=== PATIENT | male | born 1990 | race African-American/Black ===

== ENCOUNTER 2019-03-13 09:11 | Emergency (ER) | payer OTHER ==
[~2019-03-13] VITALS: Ht 180 cm; Wt 85.0 kg
[~2019-03-13 09:11] MED LIST: MAGN296S50 PO
--- NOTE | 2019-03-13 09:25 | ED EENT ---
History of Present Illness General Chief Complaint: Oral/Throat Problems Stated Complaint: SORE THROAT Source: patient Exam Limitations: no limitations History of Present Illness Date Seen by Provider: Mar 13, 2019 Time Seen by Provider: 09:13 Initial Comments Patient presents to ER by private conveyance chief complaint fast 2 days he's had sore throat progressively swelling worse on the right than left. Is had trouble with fluids because of the sore throat. He does not have any family medical history. He is not having any difficulty breathing. No voice changes. No coughing or shortness of breath. No nausea vomiting diarrhea fevers or chills. Allergies and Home Medications Allergies Coded Allergies: No Known Drug Allergies (Unverified , 04/19/15) Home Medications Magnesium Citrate 296 Ml Solution, 296 ML PO ONCE Prescribed by: MAURICIO LEE on 04/19/15 2737 Patient Home Medication List Home Medication List Reviewed: Yes Review of Systems Review of Systems Constitutional: No chills, No diaphoresis Eyes: Denies Blindness, Denies Blurred Vision Ears: Denies Dizziness, Denies Pain Nose: denies clots, denies congestion Mouth: see HPI, pain, swelling; denies bloody discharge, denies clear discharge Throat: see HPI, pain, swelling Respiratory: No cough, No short of breath Past Hnxgzrn-Vriych-Ufwxnt Hx Patient Social History Alcohol Use: Denies Use Recreational Drug Use: No Smoking Status: Never a Smoker Recent Foreign Travel: No Contact w/Someone Who Travel: No Immunizations Up To Date Date of Influenza Vaccine: Apr 19, 2014 Seasonal Allergies Seasonal Allergies: No Past Medical History Reproductive Disorders: No Sexually Transmitted Disease: No Physical Exam Vital Signs Vital Signs - First Documented 03/13/19 09:18 Temp 36.4 Pulse 58 Resp 18 B/P (MAP) 138/98 (111) Pulse Ox 99 O2 Delivery Room Air Height, Weight, BMI Height: 5'10" Weight: 195lbs. oz. 88.355678pa; BMI Method: General Appearance: WD/WN, no apparent distress Eyes: bilateral eye normal inspection, bilateral eye PERRL, bilateral eye EOMI Ears: bilateral ear auricle normal, bilateral ear canal normal, bilateral ear TM normal Nose: normal inspection; No active bleeding, No discharge Mouth/Throat: No dental tenderness, No excessive drooling, No pharynx swelling; pharynx tenderness; No tongue swollen, No tonsillar exudate; tonsillar swelling Neck: full range of motion, supple, normal inspection, tender lateral (right more than left anterior) Cardiovascular: normal peripheral pulses, regular rate, rhythm Respiratory: no respiratory distress, no accessory muscle use Progress/Results/Core Measures Results/Orders Lab Results Laboratory Tests Test 03/13/19 09:20 Range/Units Group A Streptococcus Screen NEGATIVE NEGATIVE My Orders Orders - BLANCHE CAAL Rapid Strep A Screen (03/13/19 09:19) Vital Signs/I&O 03/13/19 09:18 Temp 36.4 Pulse 58 Resp 18 B/P (MAP) 138/98 (111) Pulse Ox 99 O2 Delivery Room Air Progress Progress Note : Time: 09:23 Progress Note rapid strep Departure Impression Primary Impression: Tonsillopharyngitis Disposition: HOME, SELF-CARE Condition: Stable Departure-Patient Inst. Decision time for Depature: 09:42 Referrals: NO,LOCAL PHYSICIAN (PCP/Family) Primary Care Physician Patient Instructions: Viral Pharyngitis (DC) Add. Discharge Instructions: The culture will come back in about 2 days. If it has bacteria in it then we will call you on an antibiotic. If you do not hear from us then it was negative. Drink plenty of fluids and use salt water gargles as often as necessary to reduce the swelling and pain in her throat. Ilwy-fqm-[id number] spray such as Chloraseptic spray can be helpful. Tylenol 1000 mg every 8 hours may help with the pain. Ibuprofen 800 mg every 8 hours may help with pain. If you have nasal congestion you can use humidifiers and vapor rubs. Expect this to last 5-7 days. Return to the nearest ER if you have difficulty breathing or cannot swallow fluids. All discharge instructions reviewed with patient and/or family. Voiced understanding. BLANCHE CAAL Mar 13, 2019 09:25
[2019-03-13 09:45] VITALS: BP 138/98
== END 2019-03-13 09:45 | disposition home or self-care (01) ==
LOC: EDUNIT# 09:11 → ER 09:13
DX: J03.90 Acute tonsillitis, unspecified (principal)
CPT/HCPCS: 87430; 99284